=== PATIENT | female | born 1945 | race Caucasian/White ===

== ENCOUNTER 2017-05-24 05:00 | Inpatient (IN) ==
[2017-05-05 10:50] LABS: Basophils # 0.1 10*3/uL (0.0-0.2); Basophils % 0.7 % (0.0-0.8); Eosinophils # 0.3 10*3/uL (0.0-0.87); Eosinophils % 3.1 % (0.00-10.9); Hematocrit 42.8 VOL% (35.7-47.0); Hemoglobin 14.6 GM/DL (12.0-16.0); Immature Granulocytes % 1.1 %; Lymphocytes # 2.6 10*3/uL (1.4-4.0); Lymphocytes % 28.3 % (21.3-54.2); Mean Corpuscular HGB Conc 34.1 GM/DL (32-36); Mean Corpuscular Hemoglobin 29 PG (27-34); Mean Corpuscular Volume 85.6 FL (87-102); Mean Platelet Volume 9.4 FL (9.6-12.0); Monocytes # 0.8 10*3/uL (0.11-0.8); Monocytes % 8.2 % (1.7-12.7); Neutrophils # 5.4 10*3/uL (1.4-7.4); Neutrophils % 58.6 % (38.7-73.9); Platelet Count 255 T/CUMM (130-400); Red Cell Distribution Width 14.8 % (9.3-17.3); White Blood Count 9.2 T/CUMM (4-12)
[2017-05-05 11:04] LABS: PT Patient Result 10.2 SECS; Partial Thromboplastin Time 26.5 SECS (0-40)
[2017-05-05 11:36] LABS: Apearance,Urine Slightly Hazy (Clear); Bilirubin,Urine Negative (Negative); Blood, Urine Negative (Negative); Glucose,Urine (UA) Negative (Negative); Hyaline Casts,Urine 2 /LPF (0-3); Ketones,Urine Negative (Negative); Mucus,Urine Moderate /LPF (Occasional); Nitrite,Urine Negative (Negative); Protein,Urine 30 MG/DL; RBC,Urine 2 /HPF (0-4); Squamous Epithelial Cell,Urine Occasional /HPF (0-10); Urine Specific Gravity 1.027 (1.001-1.035); WBC,Urine 4 /HPF (0-6)
[2017-05-05 11:37] LABS: Urine Color Dark yellow (Yellow)
[2017-05-05 11:56] LABS: Alanine Aminotransferase 15 U/L (13-56); Albumin 3.5 G/DL (3.4-5.0); Alkaline Phosphatase 61 U/L (45-117); Aspartate Amino Transferase 15 U/L (0-37); Bilirubin,Total < 0.39 MG/DL (0.2-1.0); Blood Urea Nitrogen 27 MG/DL (7-18); Calcium 9.3 MG/DL (8.5-10.1); Glucose 96 MG/DL (74-106); Osmolality,Calculated 287.1 MOS/KG (273-304); Potassium 4.3 MMOL/L (3.5-5.1); Sodium 142 MMOL/L (136-145); Total Protein 6.9 G/DL (6.4-8.3)
--- NOTE | 2017-05-05 12:06 | XRay Report ---
XR chest 2V Indication: Preop evaluation Comparison: Chest x-ray dated October 02, 2015 Technique: Frontal and lateral views of the chest. Findings: The cardiomediastinal silhouette is stable in configuration. Chronic change of the lungs without focal consolidation, pleural effusion, or pneumothorax. Visualized osseous and surrounding soft tissue structures appear grossly unchanged. IMPRESSION: Stable chest x-ray without acute cardiopulmonary process demonstrated. PROCEDURE INTERPRETED AT [facility] DEPARTMENT OF RADIOLOGY Final Report Signed by: Dr Chun Hartley
[2017-05-24] MEDS ORDERED: ceFAZolin 1,000 MG VIAL ONE (06:04)
[2017-05-24] MEDS ORDERED: SODIUM CHLORIDE 0.9% 100 ML IV ONE (06:04)
[2017-05-24] MEDS ORDERED: VANCOMYCIN 1,000 MG VIAL ONE (06:04)
[2017-05-24] MEDS ORDERED: FAMOTIDINE 20 MG/2 ML VIAL IV ONE (06:26)
[2017-05-24] MEDS ORDERED: LACTATED RINGERS 1,000 ML IV SCH (06:30)
[2017-05-24] MEDS ORDERED: VANCOMYCIN INJ 1,000 MG in SODIUM CHLORIDE 0.9% 250 ML IV ONE ×2 (06:30→15:24)
[2017-05-24] MEDS ORDERED: BACITRACIN OINT 0.9 GM PACK TOP ONE (06:33)
--- NOTE | 2017-05-24 06:57 | History and Physical Update ---
History and Physical Update - History and Physical H&P was reviewed, the patient examined and there: are no changes in the patients condition since last H&P was completed.
[2017-05-24] MEDS ORDERED: TRANEXAMIC ACID 1,000 MG/10 ML VIAL IV ONE (06:58)
[2017-05-24] MEDS ORDERED: LIDOCAINE 1% 5 ML VIAL ONE (06:59)
[2017-05-24] MEDS ORDERED: PROPOFOL 200 MG/20 ML VIAL IV ONE ×2 (06:59→14:38)
[2017-05-24] MEDS ORDERED: NITROGLYCERIN SL 0.4 MG TABLET SL PRN (07:23)
[2017-05-24] MEDS ORDERED: MAGNESIUM HYDROXIDE SUSP 30 ML UDCUP PO PRN (07:23)
[2017-05-24] MEDS ORDERED: oxyCODONE IR 5 MG TABLET PO PRN ×2 (07:23)
[2017-05-24] MEDS ORDERED: diphenhydrAMINE CAP 25 MG CAPSULE PO PRN (07:23)
[2017-05-24] MEDS ORDERED: MORPHINE 2 MG/1 ML SYRINGE IV PRN ×2 (07:23)
[2017-05-24] MEDS ORDERED: ZALEPLON 5 MG CAPSULE PO PRN (07:23)
--- NOTE | 2017-05-24 07:26 | Operative Note ---
Procedure: DIAGNOSIS: Right knee primary osteoarthrosis PROCEDURE: Right total knee arthroplasty (cpt #35628) SURGEON: Solange SENIOR SOFTWARE DEVELOPER: Junior Caro ANESTHESIA: Spinal with a postoperative adductor canal block PROCEDURE and FINDINGS: After adequate was induced, the patient's knee was prepped and draped in the usual sterile fashion. The limb was exsanguinated with Esmarch. Tourniquet was inflated to 300 mmHg. A median parapatellar approach was made. Femur was cut using an intramedullary guide and a 4 in 1 cutting jig in 5 degrees of valgus. ACL and menisci were excised. Tibia was cut using intramedullary guide. Patella was cut using freehand technique. Components were trialed. Tibial fin was prepared. Components are cemented in place using Palacos cement and modern cementing techniques. Cement was removed. A 1/8 inch Hemovac drain was placed. The knee was well-balanced and full range of motion with central tracking patella. Deep layers closed with 0-0 Vicryl. Superficial layers were closed with 2-0 and 3-0 Vicryl. Skin was approximated with martin. Bacitracin and a sterile dressing was applied. Patient was transferred to recovery. A postoperative adductor canal block is anticipated. COMPONENTS: The Ashlyn Persona system was used. 6 CR narrow femur, C natural tibia, 10 mm liner, 29 mm patella TOURNIQUET TIME: 37 minutes Surgeon / Physician: Surendra Narvaez Jr. Results - Labs CBC & BMP: 05/05/17 10:44 05/05/17 10:44 Discharge Plan - Discharge Medications No Action Colesevelam [Welchol] 1,875 mg PO BID W/MEALS Omeprazole [Prilosec] 20 mg PO DAILY Cholecalciferol (Vitamin D3) [Vitamin D3] 2,000 unit PO DAILY Nitroglycerin Sl Tab [Nitrostat] 0.4 mg SL Q5M PRN PRN Reason: Chest Pain Multivitamin [One Daily] 1 each PO DAILY [place]-3S/Dha/Epa/Fish Oil [Fish Oil 1,200 mg Softgel] 1 each PO DAILY Diltiazem Cd Cap [Cardizem CD] 240 mg PO DAILY PARoxetine [Paxil] 10 mg PO BID Aspirin [Ecotrin] 81 mg PO DAILY - Follow Up or Referral - Forms/Instructions
[2017-05-24] MEDS: COLESEVELAM 625 MG TABLET PO SCH ×2 (08:00→18:23)
[2017-05-24] MEDS ORDERED: ROPIVACAINE 0.5% 30 ML VIAL ONE (08:34)
[2017-05-24 08:46] LABS: Apearance,Urine CLEAR (Clear); Bilirubin,Urine Negative (Negative); Blood, Urine Negative (Negative); Glucose,Urine (UA) Negative (Negative); Hyaline Casts,Urine 1 /LPF (0-3); Ketones,Urine Negative (Negative); Mucus,Urine Occasional /LPF (Occasional); Nitrite,Urine Negative (Negative); Protein,Urine Negative; RBC,Urine <1 /HPF (0-4); Squamous Epithelial Cell,Urine Occasional /HPF (0-10); Urine Color Yellow (Yellow); Urine Specific Gravity 1.014 (1.001-1.035); Urine Urobilinogen < 2.0 EU/DL (0.2-1.0); WBC,Urine <1 /HPF (0-6)
[2017-05-24] MEDS: LACTATED RINGERS 1,000 ML IV SCH ×2 (09:12→23:49)
--- NOTE | 2017-05-24 09:58 | XRay Report ---
Exam: XR knee 2V RT Date: 05/24/2017 7:25 AM Comparison: None Indication: Knee replacement Technique:[AP and lateral right knee] Findings: Status post recent right total knee replacement. Postoperative findings are noted. No fracture or dislocation. Impression: Recent satisfactory right total knee replacement. PROCEDURE INTERPRETED AT [facility] DEPARTMENT OF RADIOLOGY Final Report Signed by: Dr. Chantal Hernandez
[2017-05-24] MEDS: DILTIAZEM CD 240 MG CAPSULE PO SCH (10:41)
[2017-05-24] MEDS: PANTOPRAZOLE 40 MG TABLET PO SCH (11:20)
[2017-05-24] MEDS: DOCUSATE SODIUM 100 MG CAPSULE PO SCH ×2 (11:20→21:12)
[2017-05-24] MEDS: MULTIVITAMIN (CENTRUM) TABLET PO SCH (11:20)
[2017-05-24] MEDS: CHOLECALCIFEROL 1,000 UNIT TABLET PO SCH (11:20)
[2017-05-24] MEDS: PARoxetine 10 MG TABLET PO SCH ×2 (11:20→21:12)
[2017-05-24] MEDS: KETOROLAC 15 MG/1 ML VIAL IV SCH ×3 (11:21→22:43)
[2017-05-24] MEDS: ACETAMINOPHEN 500 MG TABLET PO SCH ×3 (11:27→22:43)
--- NOTE | 2017-05-24 14:25 | Cardiology Consult Note ---
Bruce Walker April RN, am scribing for, and in the presence of, Isael Wahl MD 14:22. Assessment and Plan - Time spent with patient Time spent with patient: Greater than 30 minutes (Due to assessment, planning, documentation, medication review.) (1) Status post total knee replacement, right Status: Acute Assessment and plan: She had right total knee replacement done May 24, [address] Narvaez. She is doing well from a cardiac standpoint. Current Visit: Yes (2) Hypertension Status: Chronic Assessment and plan: Her home medications have been restarted, her blood pressure is stable at this time. We will continue to monitor. Current Visit: Yes (3) Carotid bruit Status: Chronic Assessment and plan: This was evaluated by carotid Doppler in October, 1-39% stenosis in proximal right internal carotid artery. Current Visit: Yes (4) GERD (gastroesophageal reflux disease) Status: Chronic Assessment and plan: On therapy for this. Current Visit: Yes History of Present Illness - Data of Consult Patient: known to practice within the last 3 years (,) Consult date: 05/24/17 Requesting Physician: Surendra Narvaez Jr. - Consult Narrative Reason for consult: Follow postoperatively History of present illness: Guest Services Agent: Dr. Carranza Ms. Rodriguez is a 72 year old female who is routinely followed by Dr. Carranza history of GERD, hypertension, obesity, and carotid bruit. She had carotid artery ultrasound done at Dr. Carranza's office November 04, 2016 this showed 1-39 % stenosis in the proximal right internal carotid artery. Echocardiogram done with ejection fraction 55%. She had heart cath in April 2006 as well as September 2015 was negative of any significant fixed coronary obstruction. Other surgical history includes hysterectomy. Risk factors include hypertension , family history, and former smoker. Family history is positive for heart disease in parents and brother hypertension in mother, diabetes in brother, and cancer in sister. She no longer smokes, stating she quit in [address]. Dr. Carranza most recently saw Ms. Rodriguez May 12 of this year and felt that she would be at low risk for edna-/post operative cardiac event. She was admitted today by Dr. Narvaez for elective right total knee replacement. We are seeing the patient postoperatively. She is awake and alert, states she feels good. She denies any chest pain, shortness of breath, or palpitations. Home medications have been restarted. Vital signs have been stable. Patient personally interviewed and examined by me. Chart reviewed and discussed the case with Frances Barrera RN. The patient doing well postoperatively. She is not having any cardiac issues or symptomatology. The patient has had a unremarkable cardiac history in that she had a recent echocardiogram was unremarkable as well as had 2 cardiac catheterization in the past last being 2015 is noted that we had was without any obstructive coronary artery disease. She has had no issues postoperatively her vital signs are stable. CC: Surendra Narvaez Jr., - Home Medications and Allergies Home Medications: Home Medications Medication Instructions Recorded Confirmed Type Aspirin [Ecotrin] 81 mg PO DAILY 10/02/15 05/24/17 History Colesevelam [Welchol] 1,875 mg PO BID W/MEALS 10/02/15 05/24/17 History Diltiazem Cd Cap [Cardizem CD] 240 mg PO DAILY 10/02/15 05/24/17 History Multivitamin [One Daily] 1 each PO DAILY 10/02/15 05/24/17 History Nitroglycerin Sl Tab [Nitrostat] 0.4 mg SL Q5M PRN 10/02/15 05/24/17 History [place]-3S/Dha/Epa/Fish Oil [Fish 1 each PO DAILY 10/02/15 05/24/17 History Oil 1,200 mg Softgel] Omeprazole [Prilosec] 20 mg PO BID 10/02/15 05/24/17 History PARoxetine [Paxil] 10 mg PO BID 10/02/15 05/24/17 History Calcium Carbonate/Vitamin D3 1 each PO DAILY 05/24/17 05/24/17 History [Calcium 600 + Vit D 400 Tablet] Oxybutynin [Ditropan] 5 mg PO BID 05/24/17 05/24/17 History Allergies/Adverse Reactions: Allergies Allergy/AdvReac Type Severity Reaction Status Date / Time No Known Allergies Allergy Verified 05/24/17 06:14 - Constitutional Constitutional: Present: as per HPI - EENT Nose, mouth and throat: Absent: dysphagia, epistaxis, headache(s), neck pain - Cardiovascular Cardiovascular: Absent: chest pain at rest, chest pain with activity, dyspnea, dyspnea on exertion, edema, radiating jaw, neck or arm pain, lightheadedness, orthopnea, palpitations - Respiratory Respiratory: Absent: cough, dyspnea, hemoptysis, dyspnea on exertion, wheezing - Gastrointestinal Gastrointestinal: Absent: abdominal pain, constipation, diarrhea, hematemesis, hematochezia, melena, nausea, vomiting - Genitourinary Genitourinary: Absent: difficulty urinating, dysuria, hematuria - Musculoskeletal Musculoskeletal: Present: limited range of motion, muscle weakness - Neurological Neurological: Present: abnormal gait. Absent: dizziness, headache(s), syncope - Psychiatric Psychiatric: Absent: anxiety, depression - Endocrine Endocrine: Present: fatigue - Hematologic/Lymphatic Hematologic/Lymphatic: Present: easy bruising. Absent: easy bleeding Medical,Surgical,& Family Hx - Medical History Cardio: History of: Hypertension Psychological: History of: Anxiety Disorders Neurology: No history of: Seizures HEENT: History of: Ear Problem (LEFT EAR SURGERY BRUSIED EAR DRUM.), Eye Problem (GLASSES), Dental Problems (FULL SET.) Rheumatology: History of;: Rheumatoid Arthritis Gastrointestinal: History of: GERD Other: History of: Anesthesia Reactions (SLOW TO COME OUT OF ANESTHESIA.), Miscellaneous Medical Problems (RHABDOMYOLYSIS 2009?) - Surgical History Cardiac Surgeries: Sugical HX of: Cardiac Catheterization HEENT Surgeries: Surgical HX of: Eye Surgery (KOURTNEY CATARACT SURGERY) Abdominal Surgeries: Surgical HX of: Colonoscopy Reproductive Surgeries: Surgical HX of;: Breast Surgery (LUMP ASPIRATION), Hysterectomy Orthopedic Surgeries: Surgical HX of;: Orthopedic Surgery (LT HAND THUMB SURGERY.), Total Knee Replacement (RT 06/03) - Family History Family History: Reports;: Family Cancer (Sister), Family Diabetes (Brother), Family Heart Disease (Father mother brother), Family Hypertension (Mother) - Social History Smoking Status: Former smoker (Quit in 1979) Have you smoked in the last 12 months: No Frequency of Alcohol Use: None Type of Drug Use: None Physical Examination Vital Signs Temp Pulse Resp BP Pulse Ox 97.7 F 78 20 147/93 94 L 05/24/17 06:20 05/24/17 06:20 05/24/17 06:20 05/24/17 06:20 05/24/17 06:20 General: Present: Appears Well (She is overweight), No Apparent Distress HEENT: Present: PERRL, Mucus Membranes Moist Neck: Present: Supple Neck, Midline Trachea, Bruit Cardiac: Present: Reg Rate and Rhythm, No Murmur Lungs: Present: Normal Breath Sounds, No Wheeze, Rales, Rhonchi Neuro: Absent: Resting Tremor, Essential Tremor Abdomen: Present: Soft, Active Bowel Sounds, Non-Tender. Absent: Distended Skin: Absent: Rash, Suspicious Lesions Musculoskeletal: Present: Decreased Range of Motion, Pain in Joint Gait: Present: Poor Gait Extremities: Present: Normal Upper Extr. Pulses, Normal Lower Extr. Pulses, Other (Unable to assess right lower extremity due to dressing). Absent: Normal Gait, No Edema Result/EKG - Labs CBC & BMP: 05/05/17 10:44 05/05/17 10:44 Labs: Laboratory Results - last 24 hr 05/24/17 05/24/17 06:09 08:37 Urine Color Yellow Urine Appearance Clear Urine pH 6.0 Ur Specific [place] 1.014 Urine Protein Negative Urine Glucose (UA) Negative Urine Ketones Negative Urine Blood Negative Urine Nitrate Negative Urine Bilirubin Negative Urine Urobilinogen < 2.0 H Urine Leukocytes Negative Urine RBC <1 Urine WBC <1 Ur Squamous Epith Cells Occasional Hyaline Casts 1 Urine Mucus Occasional Ur Culture Indicated? Not indicated Blood Type O POSITIVE Antibody Screen Negative Vish Walker John Timothy, MD, personally performed the services described in this documentation, ascribed by Frances Barrera RN in my presence, and it is both accurate and complete 425 .
[2017-05-24] MEDS ORDERED: KETAMINE 500 MG/10 ML VIAL ONE (14:37)
[2017-05-24] MEDS ORDERED: LACTATED RINGERS 1,000 ML IV ONE (14:38)
[2017-05-24] MEDS ORDERED: MIDAZOLAM 2 MG/2 ML VIAL ONE ×2 (14:38)
--- NOTE | 2017-05-24 14:45 | Orthopedic Progress Note ---
Orthopedics - Subjective Interval history: comfortable. rle nv ok. dressing dry. continue with orders. Exam - Constitutional Vitals: Period Temp Pulse Resp BP Sys/Snow Pulse Ox Last 24 Hr 97.7 F-98.9 F 60-78 14-20 104-147/48-93 94-100 Results - Labs CBC & BMP: 05/05/17 10:44 05/05/17 10:44
--- NOTE | 2017-05-24 16:48 | Anesthesia Post-Op ---
Anesthesia Post OP - Post Ansesthetic Evaluation Patient seen in post op: Yes Resp: within normal limits CV: within normal limits Mental: within normal limits Temp: within normal limits Agct-Dr-Pulttyhoc: within normal limits Nausea and Vomiting: within normal limits Pain: within normal limits
[2017-05-24] MEDS: ONDANSETRON 4 MG/2 ML VIAL IV PRN (16:51)
[2017-05-25] MEDS: FONDAPARINUX 2.5 MG/0.5 ML SYRINGE SUBCUT SCH (00:48)
[2017-05-25] MEDS: KETOROLAC 15 MG/1 ML VIAL IV SCH (03:16)
[2017-05-25 05:41] LABS: Basophils # 0.1 10*3/uL (0.0-0.2); Basophils % 0.7 % (0.0-0.8); Eosinophils # 0.2 10*3/uL (0.0-0.87); Eosinophils % 2.7 % (0.00-10.9); Hematocrit 35.8 VOL% (35.7-47.0); Immature Granulocytes % 0.4 %; Immature Granulocytes Absolute 0.03 #; Lymphocytes # 1.7 10*3/uL (1.4-4.0); Lymphocytes % 22.4 % (21.3-54.2); Mean Corpuscular HGB Conc 33.5 GM/DL (32-36); Mean Corpuscular Hemoglobin 29 PG (27-34); Mean Corpuscular Volume 86.1 FL (87-102); Mean Platelet Volume 10.8 FL (9.6-12.0); Monocytes # 0.9 10*3/uL (0.11-0.8); Neutrophils # 4.6 10*3/uL (1.4-7.4); Neutrophils % 61.8 % (38.7-73.9); Platelet Count 233 T/CUMM (130-400); Red Blood Count 4.16 MC/CUMM (3.8-5.5); Red Cell Distribution Width 14.7 % (9.3-17.3); White Blood Count 7.5 T/CUMM (4-12)
[2017-05-25] MEDS: ACETAMINOPHEN 500 MG TABLET PO SCH (06:00)
[2017-05-25 06:08] LABS: Osmolality,Calculated 285.8 MOS/KG (273-304)
[2017-05-25] MEDS: COLESEVELAM 625 MG TABLET PO SCH ×2 (09:28→18:12)
[2017-05-25] MEDS: DILTIAZEM CD 240 MG CAPSULE PO SCH (09:29)
[2017-05-25] MEDS: MULTIVITAMIN (CENTRUM) TABLET PO SCH (09:29)
[2017-05-25] MEDS: DOCUSATE SODIUM 100 MG CAPSULE PO SCH ×2 (09:29→21:44)
[2017-05-25] MEDS: CHOLECALCIFEROL 1,000 UNIT TABLET PO SCH (09:30)
[2017-05-25] MEDS: PANTOPRAZOLE 40 MG TABLET PO SCH (09:30)
[2017-05-25] MEDS: PARoxetine 10 MG TABLET PO SCH ×2 (09:30→21:44)
--- NOTE | 2017-05-25 11:18 | Orthopedic Progress Note ---
Orthopedics - Subjective Interval history: Mrs Rodriguez was seen earlier. She is comfortable and was able to sit in a chair. Dressing dry. nv ok. Mobilize with therapy to day. IS encouraged. Exam - Constitutional Vitals: Period Temp Pulse Resp BP Sys/Snow Pulse Ox Last 24 Hr 97.4 F-99.0 F 64-90 16-18 96-132/54-82 90-98 Results - Labs CBC & BMP: 05/25/17 04:16 05/25/17 04:16
--- NOTE | 2017-05-25 11:18 | Pathology Report from [facility] ---
[facility] ACCESSION # : [id number] PATIENT NAME : Farzana Rapp ORDERING DR : KIM DUMONT MD CLINICAL HX: RT knee osteoarthritis POST-OP DX: Same SPECIMEN INFO: RT knee bone & tissue GROSS DESCRIPTION: Received in formalin labeled FARZANA RAPP are fragments of bone, cartilage and tissue measuring collectively 10.3 x 13 cm. The articular surfaces are focally degenerative with areas of cartilage lipping present. Departmental Buyer sections are submitted in one cassette following decalcification. DIAGNOSIS FOR FARZANA RAPP: RIGHT KNEE BONE & TISSUE, TOTAL REPLACEMENT: Osteoarthritis. COLLECTED DATE: 05/24/2017 [facility] REPORT DATE: 05/25/2017 ELECTRONICALLY SIGNED BY: Jomar Vergara M.D. 05/25/2017 - 9:44:26 [facility]ENTER[facility]
[2017-05-25] MEDS: ONDANSETRON 4 MG/2 ML VIAL IV PRN (12:00)
--- NOTE | 2017-05-25 12:57 | Cardiology Progress Note ---
Bruce Walker April, RN, am scribing for, and in the presence of, Isael Wahl MD 12:56. Assessment and Plan (1) Status post total knee replacement, right Status: Acute Assessment and plan: She had right total knee replacement done May 24, [address] Narvaez. From a cardiac standpoint she is stable. Current Visit: Yes (2) Hypertension Status: Chronic Assessment and plan: Her blood pressures have been stable. We will continue to monitor. Current Visit: Yes (3) Carotid bruit Status: Chronic Assessment and plan: This was evaluated by carotid Doppler in October, 1-39% stenosis in proximal right internal carotid artery. Dr. Carranza is following. Current Visit: Yes (4) GERD (gastroesophageal reflux disease) Status: Chronic Current Visit: Yes Cardiology - PN: Subj Interval history: Company Accountant: Dr. Carranza Summary: Ms. Rodriguez is a 72 year old female who is routinely followed by Dr. Carranza history of GERD, hypertension, obesity, and carotid bruit. She had carotid artery ultrasound done at Dr. Carranza's office November 04, 2016 this showed 1-39% stenosis in the proximal right internal carotid artery. Echocardiogram done 03/12/2017 with ejection fraction 55%. She had heart cath in April 2006 as well as September 2015, both were negative of any significant fixed coronary obstruction. Other surgical history includes hysterectomy. Risk factors include hypertension, family history, and former smoker. Family history is positive for heart disease in parents and brother, hypertension in mother, diabetes in brother, and cancer in sister. She no longer smokes, stating she quit in [address]. Dr. Carranza most recently saw Ms. Rodriguez May 12 of this year and felt that she would be at low risk for edna-/post operative cardiac event. May 24, 2017: She was admitted today by Dr. Narvaez for elective right total knee replacement. We are seeing the patient postoperatively. She is awake and alert, states she feels good. She denies any chest pain, shortness of breath, or palpitations. Home medications have been restarted. Vital signs have been stable. Patient personally interviewed and examined by me. Chart reviewed and discussed the case with Frances Barrera RN. The patient doing well postoperatively. She is not having any cardiac issues or symptomatology. The patient has had a unremarkable cardiac history in that she had a recent echocardiogram was unremarkable as well as had 2 cardiac catheterization in the past last being 2014 is noted that we had was without any obstructive coronary artery disease. She has had no issues postoperatively her vital signs are stable. May 25, 2017: Ms. Rodriguez is day 1 status post right total knee replacement by Dr. Narvaez. She says they just changed dressing on her knee and is having some slight discomfort related to that. She denies any chest pain, shortness of breath, palpitations, or dizziness. Vital signs been stable throughout the night. Labs are unremarkable. Patient personally interviewed and examined by me and chart reviewed. Discussed case with Frances Barrera RN. The patient is biggest issue is that of pain postoperatively that is crescendoing now that her operative medications are dissipating. She though generally has done well postoperative. Cardiac echavarria she is stable. Exam (Progress Note) - Constitutional Vitals: Period Temp Pulse Resp BP Sys/Snow Pulse Ox Last 24 Hr 97.4 F-99.0 F 63-90 14-20 96-147/54-91 90-98 Exam: General: Present: Appears Well (She is overweight), No Apparent Distress HEENT: Present: PERRL, Mucus Membranes Moist Neck: Present: Supple Neck, Midline Trachea, Bruit Cardiac: Present: Reg Rate and Rhythm, No Murmur Lungs: Present: Normal Breath Sounds, No Wheeze, Rales, Rhonchi Neuro: Absent: Resting Tremor, Essential Tremor Abdomen: Present: Soft, Active Bowel Sounds, Non-Tender. Absent: Distended Skin: Absent: Rash, Suspicious Lesions Musculoskeletal: Present: Decreased Range of Motion, Pain in Joint. Her right knee is postoperative. Gait: Present: Poor Gait Extremities: Present: Normal Upper Extr. Pulses, Normal Lower Extr. Pulses, Other (dressing to right knee dry and intact). Absent: Normal Gait, No Edema Result/EKG - Labs CBC & BMP: 05/25/17 04:16 05/25/17 04:16 Lab Results: I have reviewed the past 24 hour labs (Lab work remained stable postoperatively.) Labs: Laboratory Results - last 24 hr 05/25/17 05/25/17 04:16 04:16 WBC 7.5 RBC 4.16 Hgb 12.0 Hct 35.8 MCV 86.1 L MCH 29 MCHC 33.5 RDW 14.7 Plt Count 233 MPV 10.8 Neut % (Auto) 61.8 Lymph % (Auto) 22.4 [place] % (Auto) 12.0 Eos % (Auto) 2.7 Baso % (Auto) 0.7 Neut # (Auto) 4.6 Lymph # (Auto) 1.7 [place] # (Auto) 0.9 H Eos # (Auto) 0.2 Baso # (Auto) 0.1 Immature Gran % 0.4 Nucleated RBC % 0.0 Immature Gran # 0.03 Nucleated RBCs # 0.00 Immature Plt Fraction 0.0 Sodium 144 Potassium 4.0 Chloride 111 H Carbon Dioxide 28 Anion Gap 9.0 BUN 12 Creatinine 0.70 GFR Calculation 87 BUN/Creatinine Ratio 17.00 Glucose 96 Calculated Osmolality 285.8 Calcium 8.0 L Vish Walker John Timothy, MD, personally performed the services described in this documentation, ascribed by Frances Barrera RN in my presence, and it is both accurate and complete .
[2017-05-25] MEDS: CELECOXIB 200 MG CAPSULE PO SCH (13:36)
[2017-05-26] MEDS: FONDAPARINUX 2.5 MG/0.5 ML SYRINGE SUBCUT SCH (02:04)
[2017-05-26 05:29] LABS: Basophils % 0.5 % (0.0-0.8); Eosinophils # 0.4 10*3/uL (0.0-0.87); Eosinophils % 4.1 % (0.00-10.9); Hematocrit 33.6 VOL% (35.7-47.0); Hemoglobin 11.1 GM/DL (12.0-16.0); Immature Granulocytes % 0.4 %; Immature Granulocytes Absolute 0.03 #; Lymphocytes # 2.3 10*3/uL (1.4-4.0); Lymphocytes % 26.5 % (21.3-54.2); Mean Corpuscular Hemoglobin 29 PG (27-34); Mean Corpuscular Volume 86.6 FL (87-102); Mean Platelet Volume 10.5 FL (9.6-12.0); Monocytes % 11.9 % (1.7-12.7); Neutrophils # 4.8 10*3/uL (1.4-7.4); Neutrophils % 56.6 % (38.7-73.9); Platelet Count 219 T/CUMM (130-400); Red Blood Count 3.88 MC/CUMM (3.8-5.5); Red Cell Distribution Width 14.9 % (9.3-17.3); White Blood Count 8.5 T/CUMM (4-12)
[2017-05-26] MEDS: LACTATED RINGERS 1,000 ML IV SCH (07:22)
[2017-05-26] MEDS: CHOLECALCIFEROL 1,000 UNIT TABLET PO SCH (08:08)
[2017-05-26] MEDS: PARoxetine 10 MG TABLET PO SCH ×2 (08:08→20:14)
[2017-05-26] MEDS: DILTIAZEM CD 240 MG CAPSULE PO SCH (08:08)
[2017-05-26] MEDS: COLESEVELAM 625 MG TABLET PO SCH ×2 (08:08→16:10)
[2017-05-26] MEDS: DOCUSATE SODIUM 100 MG CAPSULE PO SCH ×2 (08:08→20:14)
[2017-05-26] MEDS: PANTOPRAZOLE 40 MG TABLET PO SCH (08:09)
[2017-05-26] MEDS: MULTIVITAMIN (CENTRUM) TABLET PO SCH (08:09)
[2017-05-26] MEDS: CELECOXIB 200 MG CAPSULE PO SCH (08:09)
--- NOTE | 2017-05-26 09:16 | Orthopedic Progress Note ---
Orthopedics - Subjective Interval history: Comfortable. Mrs. Rodriguez was able to walk in the porter yesterday. Dressing clean, dry and intact neurovascular okay. Plan: Continue with physical therapy. Plan discharge to swing bed tomorrow. Exam - Constitutional Vitals: Period Temp Pulse Resp BP Sys/Snow Pulse Ox Last 24 Hr 97.3 F-99.2 F 75-90 16-20 87-159/53-81 90-94 Results - Labs CBC & BMP: 05/26/17 04:24 05/25/17 04:16
--- NOTE | 2017-05-26 18:20 | Cardiology Progress Note ---
Bruce Walker April, RN, am scribing for, and in the presence of, Isael Wahl MD 18:20. Assessment and Plan (1) Status post total knee replacement, right Status: Acute Assessment and plan: She had right total knee replacement done May 24, [address] Narvaez. From a cardiac standpoint she is stable. Current Visit: Yes (2) Hypertension Status: Chronic Assessment and plan: Her blood pressures have been stable. We will continue to monitor. Current Visit: Yes (3) Carotid bruit Status: Chronic Assessment and plan: This was evaluated by carotid Doppler in October, 1-39% stenosis in proximal right internal carotid artery. Dr. Carranza is following. Current Visit: Yes (4) GERD (gastroesophageal reflux disease) Status: Chronic Assessment and plan: Continue present therapy. Current Visit: Yes Cardiology - PN: Subj Interval history: Baggage Checker: Dr. Carranza Summary: Ms. Rodriguez is a 72 year old female who is routinely followed by Dr. Carranza history of GERD, hypertension, obesity, and carotid bruit. She had carotid artery ultrasound done at Dr. Carranza's office November 04, 2016 this showed 1-39% stenosis in the proximal right internal carotid artery. Echocardiogram done 03/12/2017 with ejection fraction 55%. She had heart cath in April 2006 as well as September 2015, both were negative of any significant fixed coronary obstruction. Other surgical history includes hysterectomy. Risk factors include hypertension, family history, and former smoker. Family history is positive for heart disease in parents and brother, hypertension in mother, diabetes in brother, and cancer in sister. She no longer smokes, stating she quit in [address]. Dr. Carranza most recently saw Ms. Rodriguez May 12 of this year and felt that she would be at low risk for edna-/post operative cardiac event. May 24, 2017: She was admitted today by Dr. Narvaez for elective right total knee replacement. We are seeing the patient postoperatively. She is awake and alert, states she feels good. She denies any chest pain, shortness of breath, or palpitations. Home medications have been restarted. Vital signs have been stable. Patient personally interviewed and examined by me. Chart reviewed and discussed the case with Frances Barrera RN. The patient doing well postoperatively. She is not having any cardiac issues or symptomatology. The patient has had a unremarkable cardiac history in that she had a recent echocardiogram was unremarkable as well as had 2 cardiac catheterization in the past last being 2014 is noted that we had was without any obstructive coronary artery disease. She has had no issues postoperatively her vital signs are stable. May 25, 2017: Ms. Rodriguez is day 1 status post right total knee replacement by Dr. Narvaez. She says they just changed dressing on her knee and is having some slight discomfort related to that. She denies any chest pain, shortness of breath, palpitations, or dizziness. Vital signs been stable throughout the night. Labs are unremarkable. Patient personally interviewed and examined by me and chart reviewed. Discussed case with Frances Barrera RN. The patient is biggest issue is that of pain postoperatively that is crescendoing now that her operative medications are dissipating. She though generally has done well postoperative. Cardiac echavarria she is stable. May 26, 2017: Ms. Rodriguez is day 2 status post right total knee replacement. She denies any chest pain, shortness of breath, palpitations, or dizziness. She reports she has been up walking and that her knee pain is not as bad today. Discharge planning is in place for her to go to swing bed tomorrow. Patient personally interviewed and examined and chart reviewed. Discussed this case with Frances Barrera RN. Patient stable from cardiac standpoint and indeed appears to be going to swing bed tomorrow for aggressive rehab. Exam (Progress Note) - Constitutional Vitals: Period Temp Pulse Resp BP Sys/Snow Pulse Ox Last 24 Hr 97.3 F-99.2 F 75-83 16-20 87-159/53-81 90-94 Exam: General: Present: Appears Well (She is overweight), No Apparent Distress HEENT: Present: PERRL, Mucus Membranes Moist Neck: Present: Supple Neck, Midline Trachea, Bruit Cardiac: Present: Reg Rate and Rhythm, No Murmur Lungs: Present: Normal Breath Sounds, No Wheeze, Rales, Rhonchi Neuro: Absent: Resting Tremor, Essential Tremor Abdomen: Present: Soft, Active Bowel Sounds, Non-Tender. Absent: Distended Skin: Absent: Rash, Suspicious Lesions Musculoskeletal: Present: Decreased Range of Motion, Pain in Joint Gait: Present: Poor Gait Extremities: Present: Normal Upper Extr. Pulses, Normal Lower Extr. Pulses, Other (dressing to right knee dry and intact). Certainly her right knee and leg areas increased in size compared to the left from her surgery. Absent: Normal Gait, No Edema Result/EKG - Labs CBC & BMP: 05/26/17 04:24 05/25/17 04:16 Lab Results: I have reviewed the past 24 hour labs Labs: Laboratory Results - last 24 hr 05/26/17 04:24 WBC 8.5 RBC 3.88 Hgb 11.1 L Hct 33.6 L MCV 86.6 L MCH 29 MCHC 33.0 RDW 14.9 Plt Count 219 MPV 10.5 Neut % (Auto) 56.6 Lymph % (Auto) 26.5 Sullivan % (Auto) 11.9 Eos % (Auto) 4.1 Baso % (Auto) 0.5 Neut # (Auto) 4.8 Lymph # (Auto) 2.3 Sullivan # (Auto) 1.0 H Eos # (Auto) 0.4 Baso # (Auto) 0.0 Immature Gran % 0.4 Nucleated RBC % 0.0 Immature Gran # 0.03 Nucleated RBCs # 0.00 Immature Plt Fraction 0.0 Specialty Discharge - Follow Up or Referrals Follow up with: Surendra Narvaez Jr., MD [Physician] - Vish Walker John Timothy, MD, personally performed the services described in this documentation, ascribed by Frances Barrera RN in my presence, and it is both accurate and complete 820 .
[2017-05-27] MEDS: FONDAPARINUX 2.5 MG/0.5 ML SYRINGE SUBCUT SCH (00:30)
[2017-05-27 05:40] LABS: Basophils % 0.5 % (0.0-0.8); Eosinophils # 0.4 10*3/uL (0.0-0.87); Eosinophils % 4.6 % (0.00-10.9); Hemoglobin 10.5 GM/DL (12.0-16.0); Immature Granulocytes % 0.5 %; Immature Granulocytes Absolute 0.04 #; Lymphocytes % 23.2 % (21.3-54.2); Mean Corpuscular HGB Conc 32.8 GM/DL (32-36); Mean Corpuscular Hemoglobin 29 PG (27-34); Mean Corpuscular Volume 87.9 FL (87-102); Mean Platelet Volume 10.5 FL (9.6-12.0); Monocytes % 10.8 % (1.7-12.7); Neutrophils # 5.3 10*3/uL (1.4-7.4); Neutrophils % 60.4 % (38.7-73.9); Platelet Count 212 T/CUMM (130-400); Red Blood Count 3.64 MC/CUMM (3.8-5.5); Red Cell Distribution Width 14.6 % (9.3-17.3); White Blood Count 8.8 T/CUMM (4-12)
--- NOTE | 2017-05-27 06:02 | Discharge Summary ---
Hospital Course - Hospital Course Hospital Course: Mrs. Rodriguez was admitted after undergoing an uncomplicated right total knee arthroplasty. She received perioperative DVT and antimicrobial prophylaxis. She received physical therapy. She was discharged to swing bed postoperative day #3 in stable condition. Her dressing is clean, dry and intact. Right lower extremities neurovascular change. Discharge instructions were reviewed with the patient. Specialty Discharge - Follow Up or Referrals Follow up with: Surendra Narvaez Jr., MD [Physician] - Discharge Plan - Discharge Data Disposition: Disch/Xfer to Snf Discharge Diet: advance to your usual diet Hygiene: may shower Weight Bearing at Discharge: weight bear as tolerated Driving: not until seen by doctor - Discharge Medications New Docusate Sodium Cap [Colace Cap] 100 mg PO BID capsule Fondaparinux [Arixtra] 2.5 mg SUBCUT Q24H 10 Days HYDROcodone/ACETAMIN 7.5-325 [Geneva 7.5-325] 1 tablet PO Q4H PRN tablet PRN Reason: Pain Moderate (4-7) HYDROcodone/ACETAMIN 7.5-325 [Geneva 7.5-325] 2 tablet PO Q4H PRN tablet PRN Reason: Moderate Pain unrelieved by 1 Continue Colesevelam [Welchol] 1,875 mg PO BID W/MEALS Omeprazole [Prilosec] 20 mg PO BID Nitroglycerin Sl Tab [Nitrostat] 0.4 mg SL Q5M PRN PRN Reason: Chest Pain Multivitamin [One Daily] 1 each PO DAILY Acme-3S/Dha/Epa/Fish Oil [Fish Oil 1,200 mg Softgel] 1 each PO DAILY Diltiazem Cd Cap [Cardizem CD] 240 mg PO DAILY PARoxetine [Paxil] 10 mg PO BID Oxybutynin [Ditropan] 5 mg PO BID Calcium Carbonate/Vitamin D3 [Calcium 600-Vit D3 400 Tablet] 1 each PO DAILY Discontinued Aspirin [Ecotrin] 81 mg PO DAILY - Follow Up or Referral Follow Up: Surendra Narvaez Jr., MD [Physician] - - Forms/Instructions Additional Discharge Instructions: Daily dry dressing changes. Weightbearing as tolerated. CPM for 3 weeks. Arrange walker and bedside commode for home use. Wear JOY hose for 1 month. Discontinue martin and Steri-Strip wound on June 05, 2017. Follow-up appointment in 4 weeks. Prescription for Geneva 7.5 with 30 tablets was written. Resume aspirin 81 mg when Arixtra is stopped. Exam - Constitutional Vitals: Period Temp Pulse Resp BP Sys/Snow Pulse Ox Last 24 Hr 97.8 F-98.8 F 78-92 16-20 99-137/53-83 90-98 Discharge Results Labs on day of discharge: Labs from last 24 hours 05/27/17 04:01 WBC 8.8 RBC 3.64 L Hgb 10.5 L Hct 32.0 L MCV 87.9 MCH 29 MCHC 32.8 RDW 14.6 Plt Count 212 MPV 10.5 Neut % (Auto) 60.4 Lymph % (Auto) 23.2 Wagoner % (Auto) 10.8 Eos % (Auto) 4.6 Baso % (Auto) 0.5 Neut # (Auto) 5.3 Lymph # (Auto) 2.0 Wagoner # (Auto) 1.0 H Eos # (Auto) 0.4 Baso # (Auto) 0.0 Immature Gran % 0.5 Nucleated RBC % 0.0 Immature Gran # 0.04 Nucleated RBCs # 0.00 Immature Plt Fraction 0.0 DS: Provider Date of admission: 05/24/17 05:28 Primary care physician: Donald Carranza MD Attending physician on admission: Surendra Narvaez Jr., Consults: 05/24/17 07:24 Consult to Case Mgmt/Social Srvs [CONS] Routine Reason for Case Mgmt/Social Srvs: Rehab Home Health Equipment Consult Comment: Bedside Commode, CPM, Walker Consult to Occupational Therapy [CONS] Routine Reason for Occupational Therapy: Evaluate and Treat Consult Comment: ADL's Consult to Physical Therapy [CONS] Routine Reason for Physical Therapy: Evaluate and Treat Gait Training Start Therapy: Today 05/24/17 16:14 Consult to Physician [CONS] Routine Comment: Consulting Provider: Donald Carranza Consulting Provider Notified: Yes When should Consulting Provider be notified: Now Person Notified: jsoie york Date Notified: 05/24/17 05/26/17 14:16 Consult to Outpatient Therapy [CONS] Routine Reason for Outpatient Therapy: Physical Therapy Consult Comment: Pt is going to [facility] then they want OP Rehab w/ [facility] set up Discharging clinician: Surendra W Durgin, Jr., Expected date of discharge: 05/27/17
[2017-05-27] MEDS: COLESEVELAM 625 MG TABLET PO SCH (08:08)
[2017-05-27] MEDS: CELECOXIB 200 MG CAPSULE PO SCH (08:08)
[2017-05-27] MEDS: PARoxetine 10 MG TABLET PO SCH (08:08)
[2017-05-27] MEDS: PANTOPRAZOLE 40 MG TABLET PO SCH (08:08)
[2017-05-27] MEDS: CHOLECALCIFEROL 1,000 UNIT TABLET PO SCH (08:09)
[2017-05-27] MEDS: MULTIVITAMIN (CENTRUM) TABLET PO SCH (08:09)
[2017-05-27] MEDS: DILTIAZEM CD 240 MG CAPSULE PO SCH (08:09)
[2017-05-27] MEDS: DOCUSATE SODIUM 100 MG CAPSULE PO SCH (08:09)
[2017-05-27] MEDS ORDERED: BISACODYL 10 MG SUPP RECTAL PRN (10:57)
[2017-05-27 11:19] VITALS: BP 123/62
== END 2017-05-27 11:45 | disposition swing bed (61) | DRG 470 ==
LOC: N.SDSINP 05:28 → N.3E 09:27
PROVIDERS: ADMIT Orthopaedic Surgery; ATTEND Orthopaedic Surgery